=== PATIENT | male | born 1960 | race African-American/Black ===

== ENCOUNTER 2019-12-15 10:40 | Emergency (ER) | payer MEDICAID, OTHER ==
[~2019-12-15] VITALS: Ht 175.3 cm; Wt 73.0 kg
[2019-12-15 13:04] LABS: EOSINOPHILS % 0.3 % (0.0-5.0); HEMOGLOBIN. 15.2 g/dL (14.0-18.0); LYMPHOCYTES % 42.5 % (20.0-50.0); MEAN CORPUSCULAR VOLUME 88.6 fL (80.0-94.0); MEAN PLATELET VOLUME 9.2 fl (7.4-10.4); MONOCYTES % 6.5 % (2.0-8.0); NEUTROPHILS % 49.7 % (40.0-76.0); PLATELET 199 x1000/uL (130-400); RED BLOOD CELL COUNT 5.07 mill/uL (4.7-6.1); RED CELL DISTRIBUTION WIDTH 12.9 % (11.6-14.6)
[2019-12-15 13:31] VITALS: BP 141/89
== END 2019-12-15 13:32 | disposition home or self-care (01) ==
LOC: ER 10:40
DX: K64.9 Unspecified hemorrhoids (principal)
CPT/HCPCS: 36415; 85025; 99283